=== PATIENT | female | born 1965 | race Caucasian/White ===

== ENCOUNTER 2019-06-04 15:39 | Outpatient (CLI) | payer BC, OTHER, SELFPAY ==
--- NOTE | ~2019-06-04 | XR_ITS ---
EXAMINATION: XR chest 2V EXAM DATE: 06/04/2019 15:59 INDICATION: Mid chest pain. Negative T wave on EKG. TECHNIQUE: Frontal and lateral projections of the chest obtained and reviewed. There is no prior stud y for comparison. FINDINGS: The lungs are clear. There are no pleural effusions. The cardiomediastinal silhouette is within normal limits. There is no pneumothorax suspected. The bones and soft tissues are unremarkab le. IMPRESSION: No acute cardiopulmonary findings. Reviewed, dictated and finalized at location A. S BUILDER
[2019-06-04 16:08] LABS: D Dimer 0.29 mg/L (0.19-0.50)
[2019-06-04 16:19] LABS: Amylase 28 U/L (25-115); CRP 0.2 mg/dL (0.0-0.9); Creatine Kinase 55 U/L (26-192); Lipase 121 U/L (73-393)
[2019-06-04 16:22] LABS: Troponin I < 0.02 ng/mL (0.00-0.056)
== END 2019-06-04 15:40 | disposition home or self-care (01) ==
LOC: CHSLAB 15:45
PROVIDERS: PCP Internal Medicine; Visit Provider Nurse Practitioner Family
DX: R07.9 Chest pain, unspecified (principal)
CPT/HCPCS: 36415; 71046; 82150; 82550; 82553; 83690; 84484; 85380; 86140

== ENCOUNTER 2020-02-14 09:09 | Outpatient (CLI) | payer BC, OTHER, SELFPAY ==
[2020-02-15 01:03] LABS: SARS-CoV-2 RNA PCR Negative
== END 2020-02-14 09:10 | disposition home or self-care (01) ==
LOC: CHSLAB 09:11
PROVIDERS: PCP Internal Medicine; Visit Provider Internal Medicine
DX: J02.9 Acute pharyngitis, unspecified (principal); R09.89 Other specified symptoms and signs involving the circulatory and respiratory systems; Z20.828 Contact with and (suspected) exposure to other viral communicable diseases
CPT/HCPCS: 87635; C9803; U0003

== ENCOUNTER 2020-03-10 09:47 | Outpatient (CLI) | payer BC, OTHER, SELFPAY ==
--- NOTE | ~2020-03-10 | XR_ITS ---
EXAMINATION: XR knee LT min 4V DATE: 03/10/2020 10:12 INDICATION: Left knee pain. TECHNIQUE: 4 views of left knee were obtained. COMPARISON: Left knee radiograph 09/22/2014 FINDINGS: There is varus angulation at the knee. No fracture. There is moderate osteoarthritis of med ial compartment and mild osteoarthritis of lateral and patellofemoral compartments. No knee joint eff usion. IMPRESSION: 1. Moderate left knee osteoarthritis. Reviewed, dictated and finalized at location B. SFER CONTROLLER
--- NOTE | ~2020-03-10 | XR_ITS ---
EXAMINATION: XR knee RT min 4V DATE: 03/10/2020 10:12 INDICATION: Right knee pain. TECHNIQUE: 4 views of right knee were obtained. COMPARISON: Right knee radiographs 09/22/2014 FINDINGS: There is varus angulation at the knee. No fracture. There is moderate osteoarthritis of med ial compartment and mild osteoarthritis of lateral and patellofemoral compartments. There is a small knee joint effusion. IMPRESSION: 1. Moderate right knee osteoarthritis. 2. Small right knee joint effusion. Reviewed, dictated and finalized at location B. S ASSISTANT
== END 2020-03-10 09:48 | disposition home or self-care (01) ==
LOC: CHSIMG 09:49
PROVIDERS: PCP Internal Medicine; Visit Provider Orthopaedic Surgery
DX: M25.562 Pain in left knee (principal); M25.561 Pain in right knee
CPT/HCPCS: 73564

== ENCOUNTER 2021-03-18 09:14 | Observation (INO) | payer BC, SELFPAY ==
[2021-03-18] VITALS (16 sets, daily range): BP systolic 108–161; BP diastolic 65–99; PULSE 58–161; RESP 20; TEMP 36.3–37.2; O2SAT 96–99; BMI 30.4
--- NOTE | ~2021-03-18 | XR_ITS ---
EXAMINATION: XR chest 1V portable EXAM DATE: 03/18/2021 10:06 INDICATION: Shortness of breath. TECHNIQUE: Portable AP frontal chest x-ray was obtained. Comparison is made to prior examination from 06/04/2019. FINDINGS: The lungs are clear. There are no pleural effusions. The cardiomediastinal silhouette is within normal limits. There is no pneumothorax suspected. The bones and soft tissues are unremarkab le. IMPRESSION: No acute cardiopulmonary findings. Reviewed, dictated and finalized at location B. IARD TABLE REPAIRER
--- NOTE | 2021-03-18 09:27 | ECG_ITS ---
Measurements Intervals [place] Rate: 159 P: [place]: 0 QRS: 88 QRSD: 86 T: -47 QT: 262 QTc: 426 Interpretive Statements ATRIAL FIBRILLATION WITH RAPID VENTRICULAR RESPONSE NONSPECIFIC ST & T-WAVE ABNORMALITY- ANTEROLAT/INF LEADS BASELINE WANDER- I, II, III, AVR, AVF ABNORMAL ECG Electronically Signed On 03-18-2021 11:01:14 IT INFRASTRUCTURE CONSULTANT by Drew Whitt D.O.
[2021-03-18] MEDS: dilTIAZem HCl INJ 25 MG/5 ML VIAL 20 MG IV PUSH (09:40)
[2021-03-18 09:48] LABS: Basophils Absolute Auto 0.05 K/mm3 (0.00-0.10); Basophils Percent Auto 0.6 % (0.0-1.0); Eosinophils Absolute Auto 0.17 K/mm3 (0.02-0.50); Eosinophils Percent Auto 2.2 % (1.0-6.0); Hematocrit 43.6 % (35.0-49.0); Hemoglobin 14.4 g/dL (12.0-15.0); Immature Granulocyte Absolute 0.02 K/mm3 (0.00-0.00); Immature Granulocyte Percent A 0.3 % (0.0-0.0); Lymphocytes Absolute Auto 1.97 K/mm3 (1.10-4.50); Lymphocytes Percent Auto 25.2 % (18.0-42.0); Mean Corpuscular Hemoglobin 28.1 pg (27.0-31.0); Mean Platelet Volume 9.1 fl (9.2-11.8); Monocytes Absolute Auto 0.78 K/mm3 (0.10-0.90); Neutrophils Absolute Auto 4.8 K/mm3 (1.7-7.2); Neutrophils Percent Auto 61.7 % (50.0-70.0); Platelet Count Result 399 K/mm3 (150-420); Red Blood Count 5.13 M/mm3 (4.20-5.40); Red Cell Distribution Width 12.9 % (11.6-14.4); White Blood Count 7.8 K/mm3 (4.8-10.8)
[2021-03-18 10:03] LABS: D Dimer 0.42 mg/L (0.19-0.50); Partial Thromboplastin Time 25.4 SEC (23.90-30.70); Prothrombin Time 10.4 Seconds (9.50-12.10)
[2021-03-18 10:11] LABS: Alanine Aminotransferase 25 U/L (14-59); Albumin Level 3.7 g/dL (3.4-5.0); Alkaline Phosphatase 90 U/L (46-116); Anion Gap 10 mmol/L (8-16); Aspartate Amino Transferase 13 U/L (15-37); Bilirubin,Total 0.3 mg/dL (0.00-1.00); Blood Urea Nitrogen 16 mg/dL (7-18); Calcium 9.3 mg/dL (8.5-10.1); Carbon Dioxide 26 mmol/L (21-32); Chloride 109 mmol/L (98-108); Estimated CRCL calculation 70 ml/min; Estimated Glomerular Filt Rate > 60; Glucose 105 mg/dL (70-99); Lipase 133 U/L (73-393); NT Pro B Type Natriuretic Pept 421 pg/mL (0-125); Osmolality Calculated 301 mOsm/kg (285-295); Sodium 145 mmol/L (136-145); Total Protein 7.7 g/dL (6.4-8.2); Troponin I 13.7 ng/L (0.00-60.4)
--- NOTE | 2021-03-18 10:21 | ED.SOB ---
HPI - SOB/Dyspnea General Chief Complaint: Shortness of Breath/Dyspnea Stated Complaint: heart racing, shortness of breath Source: patient Mode of arrival: ambulatory Limitations: no limitations History of Present Illness HPI Narrative: this is a 55-year-old female with no significant past medical history presents to the emergency department with some increased shortness of breath with rapid heart rate heart rate in the 160s with no chest pain no abdominal pain no fever chills no flank pain no dysuria. The patient has no smoking history social drinker no family history of heart disease. Symptoms started today has never had similar symptoms. There is currently no nausea or vomiting no chest pain no headache no blurry vision no neurological deficits. MD elicited complaint: shortness of breath Onset (ago): hour(s) Timing: constant Severity: mild Related Data Home Medications Medication Instructions Recorded Confirmed naproxen sodium 220 mg capsule 220 mg PO BID PRN 03/10/20 03/10/21 Allergies Allergy/AdvReac Type Severity Reaction Status Date / Time No Known Allergies Allergy Verified 03/10/21 15:08 Review of Systems Review of Systems: All systems reviewed & are unremarkable except as noted in HPI and below PMFSH Past Medical History Medical History History of adverse reaction to anesthesia History of postoperative complication of surgical procedure Left knee DJD Right knee DJD Wears glasses Surgical History Surgical History History of x2, 1993 and 1999 History of hysterectomy Family History Family History Other Breast cancer Eye cancer Lung cancer Social History Social History Smoking status: Never smoker Alcohol intake: current Drinks per week: 1 Substance use: never Substance use type: does not use Gender identity (if verbalized by the patient): Female Spiritual care concerns: No Exam Const: General: no acute distress and alert Orientation/consciousness: patient oriented x3 HENMT: Head: normal to inspection Eyes: Conjunctivae: conjunctivae normal Pupils: Equal, round and reactive pupils present EOM: EOMs intact bilaterally Direct Ophthalmoscopy: no photophobia Neck: Neck: normal visual inspection, no lymphadenopathy and no meningeal signs Chest: Chest palpation & inspection: normal inspection of the chest Resp: Effort & Inspection: normal respiratory effort Auscultation: clear to auscultation bilaterally Cardio: Rate: tachycardic Rhythm: abnormal rhythm GI: GI Palp: Yes Soft to palpation : General: Yes no CVA tenderness Back/Spine/Pelvis: Back: no CVA tenderness Skin: General skin exam: normal color Neuro: General: patient oriented x3, moves all extremities, no meningeal signs and no focal motor deficits Extrem: General: normal to inspection and no pedal edema Psych: Mental Status: mental status grossly normal Affect: normal affect Course Course Emergency Course: Patient had rapid ventricular rate EKG shows atrial fibrillation initial heart rate 160s patient was started with some Cardizem bolus of 20mg, had a repeat bolus of 5mg and currently on a Cardizem infusion heart rate currently between 100 & 115 shortness of breath has improved, reviewed laboratory findings and chest x-ray with patient and will be admitting the patient to to limit tree under observation. Vital Signs Vital signs: Vital Signs Pulse Rate 161 H 03/18/21 09:30 Temperature 36.3 C L 03/18/21 09:58 Pulse Rate 158 H 03/18/21 09:58 Respiratory Rate 20 03/18/21 09:58 Blood Pressure 136/99 H 03/18/21 09:58 Pulse Oximetry 99 03/18/21 09:58 MDM - SOB/Dyspnea Lab Data Result diagrams: 03/18/21 09:40 03/18/21 09:
[2021-03-18] MEDS: dilTIAZem HCl INJ 25 MG/5 ML VIAL 5 MG IV PUSH (10:28)
--- NOTE | 2021-03-18 10:35 | ECHO_ITS ---
Patient Info Name: Sanjuanita Stallings [place] Age: 55 years : 1965 Gender: Female Ht: 66 in Wt: 188 lbs BSA: 2.02 m2 HR: 127 bpm BP: 136 / 99 mmHg Exam Date: 03/18/2021 11:17 AM Exam Location: [employer] [facility] Patient Status: Outpatient Admit Date: 03/18/2021 Staff Ordering Physician: Kevin Williamson MD Internet Sales Director: Nannette Morgan Attending Provider: Kevin Williamson MD Referring Physician: Clay ARORA; Exam Type: CA echo doppler color flow Study Info Indications I48.1 - Persistent atrial fibrillation Complete two-dimensional, color flow and Doppler transthoracic echocardiogram is performed. Summary 1. Complete two-dimensional, color flow and Doppler transthoracic echocardiogram is performed. 2. Left ventricular chamber dimension is normal. 3. Left ventricular systolic function is normal, estimated at 60-65%. 4. The left ventricular diastolic function is grade I diastolic dysfunction. 5. E/e' 7 is not elevated. 6. Left atrial chamber dimension is mildly enlarged. 7. There is trace mitral valve regurgitation. Left Ventricle E/e' 7 is not elevated. Left ventricular chamber dimension is normal. Left ventricular systolic function is normal, estimated at 60-65%. The left ventricular diastolic function is grade I diastolic dysfunction. Right Ventricle Right ventricular chamber dimension is normal. Right ventricular systolic function is normal. Left Atria Left atrial chamber dimension is mildly enlarged. Right Atria Right atrial chamber dimension is normal. Aortic Valve The aortic valve is trileaflet. There is no aortic valve stenosis. There is no aortic valve regurgitation. Pulmonic Valve There is no pulmonic regurgitation. Mitral Valve There is no mitral valve stenosis. There is trace mitral valve regurgitation. Tricuspid Valve There is no tricuspid valve regurgitation. Pericardium/Pleural There is no pericardial effusion. Inferior Vena Cava Normal inferior vena cava with >50% collapse upon inspiration consistent with normal right atrial pressure, 5 mmHg. Aorta The aortic root size at the sinus of Valsalva is normal. Left Ventricular Outflow Tract Name Value Normal LVOT 2D LVOT Diameter 2.0 cm LVOT Doppler LVOT Peak Velocity 92 cm/s LVOT Peak Gradient 3 mmHg LVOT Mean Gradient 2 mmHg LVOT VTI 16 cm LVOT VTI/AV VTI Ratio 1.0 LVOT Stroke Volume 51 ml Mitral Valve Name Value Normal MV Doppler MV Decel Mifflin 468 cm/s2 MV PHT 52 ms MV Area (PHT) 4.2 cm2 4.0-5.0 MV Regurgitation Doppler
[2021-03-18 10:40] LABS: Thyroid Stimulating Hormone 0.99 uIU/mL (0.36-3.74)
--- NOTE | 2021-03-18 11:15 | PC.NURSE ---
Patient admitted to room 203 for observation from ED.
[2021-03-18] MEDS: SODIUM CHLORIDE 0.9% IV 1,000 ML 100 ML IV CONT ×2 (12:05→21:47)
--- NOTE | 2021-03-18 14:04 | PM.IMHP ---
H&P: HPI History of Present Illness Date/Time: 03/18/21 14:04 this is a 55-year-old female who presented to urgent care with complaints of palpitation and shortness of breath. History of left and right knee DJD and first injections anesthesia. According to patient last night she experienced chest palpitations for approximately 2 hours eventually resolved and she laid down and went to sleep. She got up this morning and went to work and started to experience the palpitations and dizziness and weakness. Patient notes that she looked on her apple watch for her heart rate anywhere 160. Patient also noted that in the past she had experienced palpitation and went to the ED with all test being negative. She thought that she might have had another episode like the one she had in the past. WBC 7.8, hemoglobin 14.4, hematocrit 3.6, platelet 399, D-dimer 0.42, sodium 145, potassium 0.4, BUN 16, creatinine 0.85, glucose 105, troponin 13.7 BUN 421 TSH 0.99, chest x-ray no new finding, echo grade 1 diastolic dysfunction, A. fib with RVR with a heart rate of 159. Patient will be admitted for new onset of A. fib and treated with Cardizem drip Chief Complaint: Palpitations with shortness of breath Review of Systems Review of Systems: A 14 organ system Review of Systems was performed and pertinent positives included in the HPI, otherwise remaining ROS is negative. [facility] Past Medical History Medical History History of adverse reaction to anesthesia History of postoperative complication of surgical procedure Left knee DJD Right knee DJD Wears glasses Surgical History Surgical History History of x2, 1993 and 1999 History of hysterectomy Family History Family History Other Breast cancer Eye cancer Lung cancer Social History Social History Smoking status: Never smoker Second hand tobacco smoke exposure: No Alcohol intake: current Drinks per week: 2 Substance use: never Substance use type: other Other substance usage details: gummies THC Gender identity (if verbalized by the patient): Female Spiritual care concerns: No Meds Home Medications and Allergies Home Medications Medication Instructions Recorded Confirmed Type naproxen sodium 220 mg capsule 220 mg PO BID PRN 03/10/20 03/10/21 History sod picosulf 10 mg-magnes 3.5 160 ml PO DAILY #320 ml 02/10/21 Rx gram-citric 12 gram/160 mL oral solution Allergies Allergy/AdvReac Type Severity Reaction Status Date / Time No Known Allergies Allergy Verified 03/10/21 15:08 Vital Signs Vital Signs - 24 hr 03/18/21 09:30 03/18/21 09:42 03/18/21 09:58 Temperature 97.3 F L Pulse Rate 161 H 161 H 158 H Respiratory Rate 20 Blood Pressure 161/98 H 136/99 H Pulse Oximetry 99 03/18/21 10:30 03/18/21 10:51 03/18/21 11:45 Temperature 97.6 F Pulse Rate 117 H 116 H 134 H Respiratory Rate 20 20 20 Blood Pressure 112/82 130/88 Pulse Oximetry 97 98 96 03/18/21 12:00 Temperature Pulse Rate 127 H Respiratory Rate Blood Pressure Pulse Oximetry Exam Narrative: GENERAL: This is a well-nourished, well-developed patient, in no apparent distress. HEAD: normocephalic, atraumatic. EYES: PERRL. Sclera clear/white. Vision is grossly intact. EARS: External ears normal, auditory canals clear and without drainage, TMs normal without perforation. Hearing grossly intact. NOSE: External nose normal with no obvious nasal discharge, nares without redness, no rhinorrhea. THROAT: Mucous membranes moist, posterior pharynx clear. NECK: Neck supple, non-tender without lymphadenopathy, masses or thyromegaly. CARDIOVASCULAR: Irregular rate and irrhythm without murmurs, gallops, or rubs. RESPIRATORY: Clear to auscultation.
[2021-03-18 14:16] LABS: Troponin I 15.6 ng/L (0.00-60.4)
[2021-03-18] MEDS: METOPROLOL TARTRATE 25 MG TABLET PO (15:38)
[2021-03-18 16:45] LABS: Troponin I 18.1 ng/L (0.00-60.4)
--- NOTE | 2021-03-18 18:00 | PC.NURSE ---
IV Cardizem titrated from 10mg to 8mg/hr keeping heart rate [id number].
--- NOTE | 2021-03-18 19:00 | PC.NURSE ---
Completed bedside change of shift report. Patient is comfortably resting in bed. Patient is not in any pain. Patient has a cardizem drip. Drip was titrated from 8 mg/hr to 6 mg/hr. Drip is to be titrated by reducing by 2 mg/hr every hour, as long as patient's heart rate stays below 100.
[2021-03-18] MEDS: METOPROLOL TARTRATE 50 MG TAB PO (21:03)
[2021-03-18] MEDS: APIXABAN 2.5 MG TABLET 5 MG PO (21:03)
--- NOTE | 2021-03-18 21:44 | PC.NURSE ---
notified that patient continues on Cardizem drip and her pulse is now in the 60s. New orders to D/C Cardizem drip and Metoprolol and start patient on Cardizem p.o. 180mg daily.
--- NOTE | 2021-03-18 22:00 | PC.NURSE ---
Completed patient rounds. Patient is getting ready for bed, and requested a refill for her ice water. Patient stated she no longer is experiencing any pain. She does not need anything else at this time.
[2021-03-19] VITALS: BP 94/41; PULSE 50; PULSE 64; RESP 20; TEMP 36.4; O2SAT 96
--- NOTE | 2021-03-19 02:00 | PC.NURSE ---
Completed patient rounding. Patient is sleeping comfortably in bed, with no signs of pain or discomfort.
[2021-03-19 04:00] VITALS: BP 99/41; PULSE 55; PULSE 62; RESP 18; TEMP 36.4; O2SAT 96
[2021-03-19 05:41] LABS: Basophils Absolute Auto 0.03 K/mm3 (0.00-0.10); Basophils Percent Auto 0.5 % (0.0-1.0); Eosinophils Absolute Auto 0.17 K/mm3 (0.02-0.50); Eosinophils Percent Auto 2.8 % (1.0-6.0); Hemoglobin 12.1 g/dL (12.0-15.0); Immature Granulocyte Absolute 0.01 K/mm3 (0.00-0.00); Immature Granulocyte Percent A 0.2 % (0.0-0.0); Lymphocytes Absolute Auto 2.41 K/mm3 (1.10-4.50); Lymphocytes Percent Auto 39.8 % (18.0-42.0); Mean Corpuscular HGB Conc 31.8 g/dL (32.0-36.0); Mean Corpuscular Hemoglobin 28.2 pg (27.0-31.0); Mean Corpuscular Volume 88.6 fL (78.0-102.0); Mean Platelet Volume 9.4 fl (9.2-11.8); Monocytes Absolute Auto 0.48 K/mm3 (0.10-0.90); Monocytes Percent Auto 7.9 % (2.0-11.0); Neutrophils Percent Auto 48.8 % (50.0-70.0); Platelet Count Result 332 K/mm3 (150-420); Red Blood Count 4.29 M/mm3 (4.20-5.40); Red Cell Distribution Width 13.2 % (11.6-14.4); White Blood Count 6.1 K/mm3 (4.8-10.8)
--- NOTE | 2021-03-19 06:00 | PC.NURSE ---
Completed patient rounding. Patient is resting comfortably in bed, with no signs of pain or discomfort. Patient stated that she did not need anything at this time.
[2021-03-19 06:02] LABS: Alanine Aminotransferase 22 U/L (14-59); Alkaline Phosphatase 72 U/L (46-116); Anion Gap 9 mmol/L (8-16); Aspartate Amino Transferase < 10 U/L (15-37); Bilirubin,Total 0.6 mg/dL (0.00-1.00); Blood Urea Nitrogen 13 mg/dL (7-18); Calcium 8.5 mg/dL (8.5-10.1); Carbon Dioxide 24 mmol/L (21-32); Chloride 111 mmol/L (98-108); Estimated CRCL calculation 81 ml/min; Estimated Glomerular Filt Rate > 60; Glucose 95 mg/dL (70-99); Osmolality Calculated 298 mOsm/kg (285-295); Potassium 4.3 mmol/L (3.5-5.1); Sodium 144 mmol/L (136-145); Total Protein 5.8 g/dL (6.4-8.2)
[2021-03-19 07:39] VITALS: BP 113/63; PULSE 59; PULSE 63; RESP 20; TEMP 36.3; O2SAT 95
--- NOTE | 2021-03-19 08:00 | PM.DS ---
DS: Admitting Diagnosis Discharge Date 03/19/2021 Admitting Diagnosis Newly diagnosed A. fib DS: Discharge Diagnosis Discharge Diagnosis (1) Atrial fibrillation with rapid ventricular response: Code(s): I48.91 - Unspecified atrial fibrillation Status: Acute Assessment and Plan: New onset of A. fib with RVR Started Cardizem drip titrated off will discharge home with Cardizem 180 mg daily Started Eliquis Troponin within normal limits x2 EKG A. fib with RVR with heart rate in 160s Patient will follow up with the hose sprayer in [place] (2) Left knee DJD: Code(s): M17.12 - Unilateral primary osteoarthritis, left knee Status: Acute Assessment and Plan: Continue pain medication (3) Right knee DJD: Code(s): M17.11 - Unilateral primary osteoarthritis, right knee Status: Acute Assessment and Plan: Continue pain medication (4) Tricompartment degenerative joint disease of knee: Qualifiers: Laterality: bilateral Qualified Code(s): M17.0 - Bilateral primary osteoarthritis of knee Code(s): M17.10 - Unilateral primary osteoarthritis, unspecified knee Status: Acute Assessment and Plan: Continue pain medication DS: Summary Hospital Course Hospital Course: this is a 55-year-old female who presented to urgent care with complaints of palpitation and shortness of breath. History of left and right knee DJD and first injections anesthesia. According to patient last night she experienced chest palpitations for approximately 2 hours eventually resolved and she laid down and went to sleep. She got up this morning and went to work and started to experience the palpitations and dizziness and weakness. Patient notes that she looked on her apple watch for her heart rate anywhere 160. Patient also noted that in the past she had experienced palpitation and went to the ED with all test being negative she has also had a monitor car operator placed in the past no arrhythmias identified at this time. She thought that she might have had another episode like the one she had [place] the [place]. Patient did later note that she had a alcoholic beverage the night before her episode. She will follow up with a hose sprayer in [place] patient instructed to inform hose sprayer of her alcoholic consumption previous to her arrhythmias. Today she will be discharged she has converted to sinus rhythm she has not experienced any more palpitations. The patient denies SOB, CP, palpitation, extremity numbness, lightheadedness, dizziness, constipation, diarrhea, chills, or fever. Observation Time Spent with Patient Time attestation: Total time spent providing and/or coordinating discharge services: Exam Narrative: GENERAL: This is a well-nourished, well-developed patient, in no apparent distress. HEAD: normocephalic, atraumatic. EYES: PERRL. Sclera clear/white. Vision is grossly intact. EARS: External ears normal, auditory canals clear and without drainage, TMs normal without perforation. Hearing grossly intact. NOSE: External nose normal with no obvious nasal discharge, nares without redness, no rhinorrhea. THROAT: Mucous membranes moist, posterior pharynx clear. NECK: Neck supple, non-tender without lymphadenopathy, masses or thyromegaly. CARDIOVASCULAR: Irregular rate and irrhythm without murmurs, gallops, or rubs. RESPIRATORY: Clear to auscultation. Breath sounds equal bilaterally. No wheezes, rales, or rhonchi. GASTROINTESTINAL: Abdomen soft, non-tender, nondistended. Bowel sounds are active. No hepato-splenomegaly, or palpable masses. No guarding. SKIN: warm, intact with no suspicious lesions or rash, good texture and turgor. NEURO: awake, alert, and oriented to person, place and time. There were no obvious focal neurologic abnormalities. Steady gait EXTREMITIES: Normal range of motion. No edema. No calf tenderness. Negative Homans sign bilaterally. BACK: Nontender without deformity o
[2021-03-19] MEDS: dilTIAZem HCL CD 180 MG CAP.ER.24H PO (08:24)
[2021-03-19] MEDS: APIXABAN 2.5 MG TABLET 5 MG PO (08:24)
--- NOTE | 2021-03-19 11:10 | PC.NURSE ---
Patient discharged home accompanied by daughter and transported via personal vehicle. Discharge instructions given to patient and daughter with both acknowledging understanding of instructions given. IV site discontinued and removed prior to discharge. All personal items bagged and taken with patient. Staff escorted patient under own power to main entrance.
--- NOTE | 2021-03-23 14:07 | PC.NURSE ---
Pt states she received and understood her discharge instructions. Pt states I had really good care, I appreciate the nurses .
== END 2021-03-19 11:10 | disposition home or self-care (01) ==
LOC: CHSED 10:26 → CHS2ND 11:00
PROVIDERS: Emergency Medicine; Admitting Provider Emergency Medicine; Emergency Provider Emergency Medicine; PCP Internal Medicine; Visit Provider Emergency Medicine
DX: I48.91 Unspecified atrial fibrillation (principal); M17.0 Bilateral primary osteoarthritis of knee
CPT/HCPCS: 36415; 71045; 80053; 83690; 83735; 83880; 84443; 84484; 85025; 85380; 85610; 85730; 93005; 93306; 96361; 96365; 96366; 99285; A9270; G0378; J7030

== ENCOUNTER 2021-05-24 04:36 | Emergency (ER) | payer BC, OTHER, SELFPAY ==
[2021-05-24 04:41] VITALS: BP 187/100; PULSE 144; RESP 18; TEMP 36; O2SAT 96
--- NOTE | 2021-05-24 04:42 | ED.ARRPALP ---
HPI - Arrhythmia/Palpitations General Chief Complaint: Arrhythmia/Palpitations Stated Complaint: PAIN Time Seen by Provider: 05/24/21 04:43 Source: patient Mode of arrival: ambulatory History of Present Illness HPI narrative: 55-year-old female with a history of atrial fibrillation on Cardizem presents to the ER with sudden onset palpitation which woke her up at 3:30 a.m. The patient denies any chest pain or shortness of breath. Patient had an echo which revealed a normal ejection fraction with diastolic dysfunction. No history of a stress test. The patient has had normal TSH in the past. MD complaint: rapid heart beat Onset (ago): hour(s) ( 1 hour ago) Duration: constant Severity: mild Arrhythmia history: atrial fibrillation Associated symptoms: denies other symptoms Related Data Home Medications Medication Instructions Recorded Confirmed naproxen sodium 220 mg capsule 220 mg PO BID PRN 03/10/20 05/24/21 diltiazem HCl 180 mg PO DAILY 05/24/21 05/24/21 Allergies Allergy/AdvReac Type Severity Reaction Status Date / Time No Known Allergies Allergy Verified 05/24/21 04:45 Review of Systems Review of Systems: All systems reviewed & are unremarkable except as noted in HPI and below Constitutional: Constitutional: Reports as per HPI and Reports no additional constitutional complaints Eyes: Eyes: Reports as per HPI and Reports no additional eye complaints ENT: Reports system reviewed and no additional complaints, except as documented Cardiovascular: Cardiovascular: Reports as per HPI, Reports no additional cardiovascular complaints and Reports rapid heart rate Respiratory: Respiratory: Reports as per HPI and Reports no additional respiratory complaints Gastrointestinal: Gastrointestinal: Reports as per HPI and Reports no additional gastrointestinal complaints Genitourinary: Genitourinary: Reports no additional female genitourinary complaints Musculoskeletal: Musculoskeletal: Reports no additional musculoskeletal complaints Integumentary/Breasts: Skin/Breast: Reports system reviewed and no additional complaints, except as docu Neurologic: Reports system reviewed and no additional complaints, except as documented Psychiatric: Psychiatric: Reports no additional psychiatric complaints and Reports as per HPI Endocrine: Endocrine: Reports no additional endocrine complaints and Reports as per HPI Hematologic/Lymphatic: Hematologic/Lymphatic: Reports no additional hematologic/lymphatic complaints Allergic/Immunologic: Allergic/Immunologic: Reports no additional allergic/immunologic complaints PMFSH Past Medical History Medical History History of adverse reaction to anesthesia History of postoperative complication of surgical procedure Left knee DJD Right knee DJD Wears glasses Surgical History Surgical History History of x2, 1993 and 1999 History of hysterectomy Family History Family History Other Breast cancer Eye cancer Lung cancer Social History Social History Smoking status: Never smoker Second hand tobacco smoke exposure: No Alcohol intake: current Drinks per week: 2 Substance use: never Substance use type: other Other substance usage details: gummies THC Gender identity (if verbalized by the patient): Female Spiritual care concerns: No Exam Const: General: no acute distress and alert Orientation/consciousness: patient oriented x3 HENMT: Head: normal to inspection Eyes: Conjunctivae: conjunctivae normal Pupils: Equal, round and reactive pupils present EOM: EOMs intact bilaterally Neck: Neck: normal visual inspection and no lymphadenopathy Chest: Chest palpation & inspection: normal inspection of the chest Resp: Effort & Insp
[2021-05-24 04:44] VITALS: PULSE 144
--- NOTE | 2021-05-24 04:48 | ECG_ITS ---
Measurements Intervals [place] Rate: 139 P: [place]: 0 QRS: 28 QRSD: 92 T: -18 QT: 257 QTc: 391 Interpretive Statements ATRIAL FIBRILLATION WITH RAPID VENTRICULAR RESPONSE NONSPECIFIC ST & T-WAVE ABNORMALITY- ANTEROLAT/INF LEADS BASELINE ARTIFACT- I, II, III, AVR, V5-V6 ABNORMAL ECG Electronically Signed On 05-24-2021 8:05:23 CHANGE MANAGEMENT ANALYST by Drew Whitt D.O.
[2021-05-24] MEDS: METOPROLOL TARTRATE INJ 5 MG/5 ML VIAL IV PUSH (05:00)
[2021-05-24 05:16] LABS: Basophils Absolute Auto 0.05 K/mm3 (0.00-0.10); Basophils Percent Auto 0.8 % (0.0-1.0); Eosinophils Absolute Auto 0.22 K/mm3 (0.02-0.50); Eosinophils Percent Auto 3.7 % (1.0-6.0); Hematocrit 42.7 % (35.0-49.0); Hemoglobin 13.8 g/dL (12.0-15.0); Immature Granulocyte Absolute 0.01 K/mm3 (0.00-0.00); Immature Granulocyte Percent A 0.2 % (0.0-0.0); Lymphocytes Absolute Auto 1.88 K/mm3 (1.10-4.50); Lymphocytes Percent Auto 31.8 % (18.0-42.0); Mean Corpuscular HGB Conc 32.3 g/dL (32.0-36.0); Mean Corpuscular Hemoglobin 28.1 pg (27.0-31.0); Mean Platelet Volume 9.1 fl (9.2-11.8); Monocytes Absolute Auto 0.44 K/mm3 (0.10-0.90); Monocytes Percent Auto 7.4 % (2.0-11.0); Neutrophils Absolute Auto 3.3 K/mm3 (1.7-7.2); Neutrophils Percent Auto 56.1 % (50.0-70.0); Platelet Count Result 335 K/mm3 (150-420); Red Blood Count 4.91 M/mm3 (4.20-5.40); Red Cell Distribution Width 13.2 % (11.6-14.4); White Blood Count 5.9 K/mm3 (4.8-10.8)
[2021-05-24] MEDS: dilTIAZem HCl INJ 25 MG/5 ML VIAL 10 MG IV PUSH (05:21)
[2021-05-24 05:38] LABS: Alanine Aminotransferase 35 U/L (14-59); Albumin Level 3.6 g/dL (3.4-5.0); Alkaline Phosphatase 92 U/L (46-116); Anion Gap 10 mmol/L (8-16); Aspartate Amino Transferase 16 U/L (15-37); Bilirubin,Total 0.3 mg/dL (0.00-1.00); Blood Urea Nitrogen 12 mg/dL (7-18); Calcium 9.1 mg/dL (8.5-10.1); Carbon Dioxide 26 mmol/L (21-32); Chloride 109 mmol/L (98-108); Estimated CRCL calculation 83 ml/min; Estimated Glomerular Filt Rate > 60; Glucose 119 mg/dL (70-99); NT Pro B Type Natriuretic Pept 80 pg/mL (0-125); Osmolality Calculated 300 mOsm/kg (285-295); Potassium 3.8 mmol/L (3.5-5.1); Sodium 145 mmol/L (136-145); Total Protein 7.5 g/dL (6.4-8.2); Troponin I 6.7 ng/L (0.00-60.4)
[2021-05-24 06:57] VITALS: BP 100/82; PULSE 120; RESP 16; TEMP 36.6; O2SAT 97
== END 2021-05-24 06:58 | disposition home or self-care (01) ==
PROVIDERS: Emergency Provider Internal Medicine Critical Care Medicine; PCP Internal Medicine
DX: I48.20 Chronic atrial fibrillation, unspecified (principal)
CPT/HCPCS: 36415; 80053; 83880; 84484; 85025; 93005; 96374; 96375; 99284

== ENCOUNTER 2021-07-05 02:24 | Day surgery (SDC) | payer BC, SELFPAY ==
[2021-06-24 13:34] VITALS: BMI 29.9
[2021-07-05 11:47] VITALS: BP 149/78; PULSE 92; RESP 20; TEMP 36.3; O2SAT 98
[2021-07-05] MEDS: LACTATED RINGERS 1,000 ML 150 ML IV CONT (11:58)
--- NOTE | 2021-07-05 12:09 | WPDGICN ---
Assessment and Plan Assessment and plan (1) History of colon polyps: Code(s): Z86.010 - Personal history of colonic polyps Status: Acute Assessment and Plan: Patient has a history of adenomatous colon polyp removed from the colon in 2014. Plan is for surveillance colonoscopy now consider this a future intervals. Further recommendations will be given after colonoscopy. GI Consult Note Consult date/time: 07/05/21 12:09 HPI: Sanjuanita Holbrook is a 56 year old female Presents for colonoscopy. Patient has a history of adenomatous colon polyp removed from the colon in 2014. Patient reports that her current weight appetite bowel movements are normal. She denies abdominal pain. She has had no bleeding. Family history is noncontributory. Patient reports she currently is being monitored for cured for paroxysmal atrial fibrillation but does not require anticoagulation. Review of Systems Review of Systems: All systems reviewed & are unremarkable except as noted in HPI and below PMFSH Past Medical History Medical History History of adverse reaction to anesthesia History of postoperative complication of surgical procedure Left knee DJD Right knee DJD Wears glasses Surgical History Surgical History History of x2, 1993 and 1999 History of hysterectomy Family History Family History Other Breast cancer Eye cancer Lung cancer Social History Social History Smoking status: Never smoker Second hand tobacco smoke exposure: No Alcohol intake: former Drinks per week: 2 Substance use: never Substance use type: does not use Other substance usage details: gummies AR Living arrangements: alone Gender identity (if verbalized by the patient): Female Spiritual care concerns: No Meds Home Medications and Allergies Home Medications Medication Instructions Recorded Confirmed Type naproxen sodium 220 mg capsule 220 mg PO BID PRN 03/10/20 06/24/21 History diltiazem HCl [Cardizem CD] 240 mg PO DAILY #30 cap 05/24/21 06/24/21 Rx flecainide 50 mg PO BID 06/24/21 07/05/21 History Allergies Allergy/AdvReac Type Severity Reaction Status Date / Time No Known Allergies Allergy Verified 07/05/21 11:45 Vital Signs Vital Signs - 24 hr 07/05/21 11:47 Temperature 97.3 F L Pulse Rate 92 Respiratory Rate 20 Blood Pressure 149/78 H Pulse Oximetry 98 Exam Narrative: Physical exam reveals patient to be alert. Vital signs stable. HEENT exam is unremarkable. Patient is anicteric. Lungs are clear to auscultation and percussion. Heart is without murmur or extra sounds. Abdominal exam bowel sounds are present soft nontender with no organomegaly. Digital external rectal exam is normal.
--- NOTE | 2021-07-05 12:34 | WPDANESEPPF ---
Anes - Initial Pre Proc Eval Procedure: Operation Date: 07/05/21 13:00 Proposed Procedures p Screening Colonoscopy - Robert Archer MD Date/Time: 07/05/21 12:34 Surgeon: Robret Archer MD Pre Op Diagnosis: hx of colon polyps Patient Data Age: 56 Gender: F Height: 1.68 m Weight: 85.8 kg Last Vital Signs Temp 97.3 F L 07/05/21 11:47 Pulse 92 07/05/21 11:47 Resp 20 07/05/21 11:47 BP 149/78 H 07/05/21 11:47 Pulse Ox 98 07/05/21 11:47 Allergies Allergy/AdvReac Type Severity Reaction Status Date / Time No Known Allergies Allergy Verified 07/05/21 11:45 Home Medications Medication Instructions Recorded Confirmed Type naproxen sodium 220 mg capsule 220 mg PO BID PRN 03/10/20 06/24/21 History diltiazem HCl [Cardizem CD] 240 mg PO DAILY #30 cap 05/24/21 06/24/21 Rx flecainide 50 mg PO BID 06/24/21 07/05/21 History Patient hx anesthesia problems: none Family hx anesthesia problems: none Results Review: All pre-operative results and documents have been reviewed as part of the pre-operative evaluation. [facility] Past Medical History Medical History History of adverse reaction to anesthesia History of postoperative complication of surgical procedure Left knee DJD Right knee DJD Wears glasses Surgical History Surgical History History of x2, 1993 and 1999 History of hysterectomy Family History Family History Other Breast cancer Eye cancer Lung cancer Social History Social History Smoking status: Never smoker Second hand tobacco smoke exposure: No Alcohol intake: former Drinks per week: 2 Substance use: never Substance use type: does not use Other substance usage details: gummies THC Living arrangements: alone Gender identity (if verbalized by the patient): Female Spiritual care concerns: No Anes - Eval Final PreProcedure Day of Procedure 07/05/21 12:34 Patient weight: obese Heart: regular rate and rhythm Lungs: clear to auscultation Airway: Mallampati scale class II Neurological: alert and oriented Last oral intake: >/= 8 hours ASA classification: III Emergent: no Anesthetic plan: proceed Anesthesia type and monitoring: general GIVS and standard monitoring Results Review: All pre-operative results and documents have been reviewed as part of the pre-operative evaluation. Informed Consent: The patient's anesthetic plan and its attendant risks and benefits were discussed with the patient/family/POA. Questions were solicited and answers provided to the satisfaction of the patient/family/POA.
[2021-07-05 12:55] VITALS: BP 107/57; PULSE 80; RESP 20; O2SAT 97
[2021-07-05 13:05] VITALS: BP 115/65; PULSE 76; RESP 19; O2SAT 98
[2021-07-05 13:15] VITALS: BP 112/68; PULSE 70; RESP 17; O2SAT 99
== END 2021-07-05 13:25 | disposition home or self-care (01) ==
PROVIDERS: PCP Internal Medicine; Visit Provider Internal Medicine Gastroenterology
PROC: 0DJD8ZZ Inspection of Lower Intestinal Tract, Via Natural or Artificial Opening Endoscopic (ICD-10-PCS; CPT 45378; principal; 2021-07-05 13:00)
DX: Z12.11 Encounter for screening for malignant neoplasm of colon (principal); D17.5 Benign lipomatous neoplasm of intra-abdominal organs; E66.9 Obesity, unspecified; Z68.30 Body mass index [BMI] 30.0-30.9, adult; F12.90 Cannabis use, unspecified, uncomplicated
CPT/HCPCS: 45378; J2704; J7120

== ENCOUNTER 2022-07-07 08:48 | Outpatient (CLI) | payer OTHER, SELFPAY ==
--- NOTE | ~2022-07-07 | XR_ITS ---
XR sinus min 3V DATE: 07/07/2022 09:22 INDICATION: Right facial pressure. Sinus infection for 9 days. TECHNIQUE: Ramonita Acuna, lateral and submental vertical views COMPARISON: None FINDINGS: There is mucoperiosteal thickening and some cloudiness of the right maxillary sinus consist ent with right maxillary sinusitis. Remainder the paranasal sinuses and the mastoid air cells appear normally developed and aerated. There appears to be asymmetric soft tissue swelling of the right middle and inferior nasal turbinates . Is mild rightward bowing of the nasal septum. IMPRESSION: Right maxillary sinusitis Reviewed, dictated and finalized at location A. IMPRESSION: Right maxillary sinusitis
== END 2022-07-07 08:49 | disposition home or self-care (01) ==
LOC: CHSIMG 08:53
PROVIDERS: PCP Internal Medicine; Visit Provider Nurse Practitioner Family
DX: J32.0 Chronic maxillary sinusitis (principal)
CPT/HCPCS: 70220

== ENCOUNTER 2023-12-17 13:33 | Emergency (ER) | payer BC, SELFPAY ==
--- NOTE | ~2023-12-17 | XR_ITS ---
XR toe 5th LT min 2V Ordering provider: Vishnu Angel MD History: . injury, deformity/pain Lt. 5th digit . Comparison: October 31, 2010 FINDINGS: BONES: Fracture of the proximal phalanx of the little toe is noted with lateral and dorsal angulation . No other fractures seen. JOINT SPACES: Normal. SOFT TISSUES: Soft tissue swelling is seen in the little toe. IMPRESSION: Fracture of the proximal phalanx of the little toe with lateral and dorsal angulation. Reviewed, dictated and finalized at location A. IMPRESSION: Fracture of the proximal phalanx of the little toe with lateral and dorsal angu lation.
[2023-12-17 13:35] VITALS: BP 173/85; PULSE 88; RESP 20; TEMP 36.6; O2SAT 99
--- NOTE | 2023-12-17 14:01 | ED.GENADULT ---
HPI - General Adult General Chief complaint: Extremity Injury, Lower Stated complaint: left pinky toe deformity Time Seen by Provider: 12/17/23 14:00 Source: patient Mode of arrival: ambulatory Limitations: no limitations History of Present Illness HPI narrative: 58-year-old white female stubbed her foot on a bed just prior to admitted to emergency department. Complains of left little toe hurting and deformed. Feels little numb. To walk on it. Denies any other injury. She is eating drinking voiding stooling fine without cough fever sore throat runny nose bleeding or bruising lumps or bumps or other swelling besides her left little toe. She denies any other complaints. Related Data Home Medications Medication Instructions Recorded Confirmed naproxen sodium 220 mg capsule 220 mg PO BID PRN Pain 03/10/20 12/17/23 (Aleve) flecainide 50 mg tablet 50 mg PO BID 06/24/21 12/17/23 Allergies Allergy/AdvReac Type Severity Reaction Status Date / Time No Known Allergies Allergy Verified 12/17/23 13:34 Review of Systems Review of Systems: All systems reviewed & are unremarkable except as noted in HPI and below PMFSH Past Medical History Medical History History of adverse reaction to anesthesia History of postoperative complication of surgical procedure Left knee DJD Right knee DJD Wears glasses Surgical History Surgical History History of x2, 1993 and 1999 History of hysterectomy Family History Family History Other Breast cancer Eye cancer Lung cancer Social History Social History Smoking status: Never smoker Second hand tobacco smoke exposure: No Alcohol intake: former Drinks per week: 2 Substance use: never Substance use type: does not use Other substance usage details: gummies THC Living arrangements: alone Gender identity (if verbalized by the patient): Female Spiritual care concerns: No Exam Narrative: White female no apparent distress extremities left lower leg is normal except for her left little toe which is externally rotated and laterally. Tender. The rest of her foot and ankles fine she has normal above the foot. Decreased sensation around her little toe. Capillary refills normal. Motor and sensory is grossly intact except for around her little toe. On the left side. Course Vital Signs Vital signs: Vital Signs Temperature 36.6 C 12/17/23 13:35 Pulse Rate 88 12/17/23 13:35 Respiratory Rate 20 12/17/23 13:35 Blood Pressure 173/85 H 12/17/23 13:35 Pulse Oximetry 99 12/17/23 13:35 Temperature 36.6 C 12/17/23 13:35 Pulse Rate 88 12/17/23 13:35 Respiratory Rate 20 12/17/23 13:35 Blood Pressure 173/85 H 12/17/23 13:35 Pulse Oximetry 99 12/17/23 13:35 Medical Decision Making MDM Narrative Medical decision making narrative: Fracture of the proximal phalanx of the little toe with lateral and dorsal angulation. ? Patient placed in room: ? History and physical was performed. left foot x-ray per radiologist and read by me over-read by the radiologist:Fracture of the proximal phalanx of the little toe with lateral and dorsal angulation. Independent Historian: Patient External Source Review: Differential Dx includes but not limited to: fracture dislocation Medications were Reviewed: Medications given: [place] 5,digital block of her left little toe with 3 cc of 1% lidocaine. The toe was then reduced and rekha-taped to her 4th toe. Post reduction film was not done. Independently Interpreted by me: Shared decision Making: Evaluation was discussed all questions were asked and answered patient agreed with the plan. Social Situation Impacting Patients Care:
[2023-12-17] MEDS: HYDROcodone/acetaminophen (*CRX) 5-325 MG TABLET 1 TAB PO (14:17)
[2023-12-17 15:31] VITALS: BP 132/82; PULSE 72; RESP 16; TEMP 36.7; O2SAT 100
== END 2023-12-17 15:31 | disposition home or self-care (01) ==
PROVIDERS: Emergency Provider Emergency Medicine; PCP Internal Medicine
DX: S92.512A Displaced fracture of proximal phalanx of left lesser toe(s), initial encounter for closed fracture (principal); Z79.1 Long term (current) use of non-steroidal anti-inflammatories (NSAID); Z79.899 Other long term (current) drug therapy; W22.03XA Walked into furniture, initial encounter
CPT/HCPCS: 73660; 99284; A9270

== ENCOUNTER 2024-04-22 09:00 | Outpatient (RCR) | payer BC, SELFPAY ==
--- NOTE | 2024-04-22 10:19 | PTOPREEVAL ---
Assessment and note entered by Jeanie Tripathi, PT Evaluation Information Assessment Status Re-evaluation Diagnosis Bilateral TKA ICD-10 Condition Codes (PT) Difficulty Walking R26.2,Aftercare following joint replacement surgery Z47.1 Onset 02/22/2024 Subjective Information Mrs. Holbrook presents to physical therapy to continue rehabilitating from bilateral total knee arthroplasty on 02/22/24. She saw her doctor last week who cleared her to drive and work, but due to continued ROM limitations wishes for Mrs. Holbrook to continue PT. Mrs. Holbrook notes stiffness bilaterally and pain with excessive flexion/ extension of bilateral knees as well as mild difficulty with squatting, walking long distances, and standing for a prolonged time. Her goal is to make additional progress in her knee ROM and functional mobility to return to her prior level of function. Reports her next doctor's visit is the week of May. Reported Pain Level Pain Score 1,1: Self Report Assessment PT Clinical Summary Mrs. Holbrook has attended 10 total skilled therapy visits for aftercare following bilateral TKA on . She continues to demonstrate gross lower extremity weakness, impaired bilateral knee ROM, and difficulty with functional tasks such as ascending/descending stairs and walking long distances. Skilled PT intervention is indicated to improve joint mobility, strength, and functional mobility to help Mrs. Holbrook return to her prior level of function and normal work activities without pain. Plan of Care Interventions Electrical Stimulation,Gait Training,Hot Pack/Cold Pack,Intermittent Compression Pump,Manual Therapy ,Neuro Re-education,Patient/Caregiver Education, Therapeutic Activities,Therapeutic Exercise,Self- Care/Home Management Other Interventions Vasopnuematic Compression PT Services Indicated Yes Treatment Frequency and 2x/week for 8 visits Duration These treatments will address the objective and functional deficits as defined above. The patient will be advanced safely and appropriately in order for the patient to progress towards his/her prior level of function. Additional exercises will be introduced and as well as a comprehensive home exercise program upon discharge, if needed, ?to ensure carryover of functional gains achieved in the clinic. This treatment plan has been reviewed and agreement upon by the patient.
--- NOTE | 2024-04-22 11:34 | PCPTNOTE ---
I reviewed the License Pending Therapist's documentation and agree with the findings.
--- NOTE | 2024-04-29 17:08 | PCPTNOTE ---
I reviewed the License Pending Therapist's documentation and agree with the findings.
--- NOTE | 2024-05-06 16:26 | PCPTNOTE ---
Cancelled session. Reports she cannot make it today and said she can D/C from therapy with an HEP.
--- NOTE | 2024-05-10 16:09 | OPREHPOC ---
Outpatient Therapy Plan of Care This is a Multidisciplinary Plan of Care that may contain components documented by all disciplines (PT, OT, and ST.) PT Problem 1 PT Problem #1 Knowledge Deficit PT Goal 1 Goal / Goal Update Pt will be independent with HEP focused on ROM s/p joint evangelical Target Visit 10 Progress Met PT Problem 2 PT Problem #2 Impaired Range of Motion PT Goal 1 Goal / Goal Update Pt will achieve 5-100 degrees active ROM. Pt will demonstrate knee extension to -5 degrees to be able to navigate stairs. Target Visit 17 Progress Partially Met PT Problem 3 PT Problem #3 Impaired Strength PT Goal 1 Goal / Goal Update Pt to improve knee extension strength to 5/5. Pt to improve quadriceps strength to 5/5 to be able to perform sit to stand from a chair independently. Target Visit 10 Progress Met PT Goal 2 Goal / Goal Update Pt to improve gross lower extremity strength to 5/ 5. Pt to improve gross lower extremity strength to 5/ 5 to be able to ascend/descend stairs independently with good mechanics and reciprocal pattern. Target Visit 17 PT Problem 4 PT Problem #4 Impaired Gait PT Goal 1 Goal / Goal Update Pt to improve demonstrate improved heel strike in gait. Pt to be able to ambulate without an AD for duration of 6 minutes with sulaiman greater then 2. 6 feet/second in order to assist with more efficient community navigation. Target Visit 10 Progress Met PT Goal 2 Goal / Goal Update Pt to be able to stand for more than one hour without pain. 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 Target Visit 17
--- NOTE | 2024-05-10 16:09 | PTOPDC ---
Assessment and note entered by Jeanie Tripathi, PT Evaluation Information Assessment Status Discharge - Pt Not Present Diagnosis Bilateral TKA ICD-10 Condition Codes (PT) Difficulty Walking R26.2,Aftercare following joint replacement surgery Z47.1 Onset 02/22/2024 Subjective Information Mrs. Holbrook presents to physical therapy to continue rehabilitating from bilateral total knee arthroplasty on 02/22/24. She saw her doctor last week who cleared her to drive and work, but due to continued ROM limitations wishes for Mrs. Holbrook to continue PT. Mrs. Holbrook notes stiffness bilaterally and pain with excessive flexion/ extension of bilateral knees as well as mild difficulty with squatting, walking long distances, and standing for a prolonged time. Her goal is to make additional progress in her knee ROM and functional mobility to return to her prior level of function. Reports her next doctor's visit is the week of May. Assessment PT Clinical Summary Patient called and stated that her doctor said she can discharge from skilled PT services and continue HEP from home. Progress toward goals can be viewed in previous notes. Plan of Care PT Services Indicated No
== END 2024-04-29 17:00 | disposition home or self-care (01) ==
LOC: CHSPT 09:00
PROVIDERS: Visit Provider Physician Assistant
DX: Z47.1 Aftercare following joint replacement surgery (principal); R26.2 Difficulty in walking, not elsewhere classified; Z96.653 Presence of artificial knee joint, bilateral
CPT/HCPCS: 97110; 97530